=== PATIENT | female | born 1955 | race Caucasian/White ===

== ENCOUNTER 2023-05-20 14:31 | Outpatient (OUT) | payer MEDICARE, BC, SELFPAY ==
--- NOTE | 2023-05-20 | MM_ITS ---
Patient: NATACHA CROWLEY Exam Date: 05/20/2023 : 1955 Gender:F Ordering : DR CARLIN PHILLIPS Admission #: [id number] Family : Order #: [id number] CLICK HERE TO VIEW EXAM RADIOLOGY REPORT PROCEDURE: MM TOMOSYNTHESIS DIAGNOSTIC LT, 05/20/2023, 15:15 US BREAST LT LIMITED, 05/20/2023, 14:51 COMPARISON: MG MAMM SCREEN 3D ARNULFO CAD, 11/09/2022. INDICATIONS: nipple inversion Calculator Name NCI Breast Cancer Risk Assessment Tool 5 Year Breast Cancer Risk 2.60% Lifetime Breast Cancer Risk 7.60% Personal Breast Cancer No Personal Ovarian Cancer No Treatments None Family Cancers Mother with cervical cancer at age ~30; Grandmother-maternal with cervical cancer at age ~68; Aunt-maternal with breast cancer at age ~40; Cousin-maternal with uterine cancer at age ~23. LOCATION: [facility] BREAST COMPOSITION: Scattered areas fibroglandular density. FINDINGS: DIAGNOSTIC CATEGORY 2--BENIGN FINDING. NO CHANGE FROM COMPARISON. . LEFT BREAST: No significant suspicious finding. Scattered benign-appearing nodules are present. Scattered benign-appearing calcifications are present. Stable micro clip marker upper outer quadrant, posterior breast. Inverted nipple again observed by mammography and by ultrasound. No focal mass on ultrasound. Further evaluation of the inverted nipple should be based on clinical and physical exam. RECOMMENDATIONS: ROUTINE MAMMOGRAM AND CLINICAL EVALUATION IN 12 MONTHS. PLEASE NOTE: A NORMAL MAMMOGRAM DOES NOT EXCLUDE THE POSSIBILITY OF BREAST CANCER. A CLINICALLY SUSPICIOUS PALPABLE LUMP SHOULD BE BIOPSIED. Dictated by: Marbin Butterfield MD on 05/21/2023 at 07:15 Approved by: Marbin Butterfield MD on 05/21/2023 at 07:30
--- NOTE | 2023-05-20 14:35 | US_ITS ---
Patient: NATACHA CROWLEY Exam Date: 05/20/2023 : 1955 Gender:F Ordering : DR CARLIN PHILLIPS Admission #: [id number] Family : Order #: [id number] CLICK HERE TO VIEW EXAM RADIOLOGY REPORT PROCEDURE: MM TOMOSYNTHESIS DIAGNOSTIC LT, 05/20/2023, 15:15 US BREAST LT LIMITED, 05/20/2023, 14:51 COMPARISON: MG MAMM SCREEN 3D ARNULFO CAD, 11/09/2022. INDICATIONS: nipple inversion Calculator Name NCI Breast Cancer Risk Assessment Tool 5 Year Breast Cancer Risk 2.60% Lifetime Breast Cancer Risk 7.60% Personal Breast Cancer No Personal Ovarian Cancer No Treatments None Family Cancers Mother with cervical cancer at age ~30; Grandmother-maternal with cervical cancer at age ~68; Aunt-maternal with breast cancer at age ~40; Cousin-maternal with uterine cancer at age ~23. LOCATION: [facility] BREAST COMPOSITION: Scattered areas fibroglandular density. FINDINGS: DIAGNOSTIC CATEGORY 2--BENIGN FINDING. NO CHANGE FROM COMPARISON. . LEFT BREAST: No significant suspicious finding. Scattered benign-appearing nodules are present. Scattered benign-appearing calcifications are present. Stable micro clip marker upper outer quadrant, posterior breast. Inverted nipple again observed by mammography and by ultrasound. No focal mass on ultrasound. Further evaluation of the inverted nipple should be based on clinical and physical exam. RECOMMENDATIONS: ROUTINE MAMMOGRAM AND CLINICAL EVALUATION IN 12 MONTHS. PLEASE NOTE: A NORMAL MAMMOGRAM DOES NOT EXCLUDE THE POSSIBILITY OF BREAST CANCER. A CLINICALLY SUSPICIOUS PALPABLE LUMP SHOULD BE BIOPSIED. Dictated by: Marbin Butterfield MD on 05/21/2023 at 07:15 Approved by: Marbin Butterfield MD on 05/21/2023 at 07:30
== END 2023-05-20 14:32 | disposition home or self-care (01) ==
LOC: US 14:31
PROVIDERS: PCP Family Medicine; Visit Provider Family Medicine
DX: N64.59 Other signs and symptoms in breast (principal); Z80.3 Family history of malignant neoplasm of breast; Z80.8 Family history of malignant neoplasm of other organs or systems
CPT/HCPCS: 76642; 77065; G0279